=== PATIENT | female | born 1980 ===

== ENCOUNTER 2016-06-16 10:04 | Emergency (ER) | payer OTHER ==
[2016-06-16 10:09] VITALS: TEMP 98.1; O2SAT 100
--- NOTE | 2016-06-16 10:48 | ED PDOC ---
HPI: Female Pain Time Seen by Provider: 06/16/16 10:07 Chief Complaint (Nursing): Female Genitourinary Chief Complaint (Provider): Vaginal bleeding History Per: Patient Additional Complaint(s): Pt is a 36 yo female, no PMH, presents to ED at 12 weeks for evaluation of bright red vaginal bleeding, and mild lower abdominal cramping that developed this am. Pt reports bleeding was noted when wiping. no heavy clots. . Pt is followed by Clinic, last saw Dr. Pang last week. Past Medical History Reviewed: Historical Data, Nursing Documentation, Vital Signs Vital Signs: Last Vital Signs Temp 98.1 F 06/16/16 10:07 Pulse 79 06/16/16 10:07 Resp 19 06/16/16 10:07 BP 95/63 L 06/16/16 10:07 Pulse Ox 100 06/16/16 10:07 - Medical History PMH: No Chronic Diseases - Surgical History Surgical History: No Surg Hx - Family History Family History: States: No Known Family Hx - Living Arrangements Living Arrangements: With Family - Social History Current smoker - smoking cessation education provided: No Alcohol: None Drugs: Denies - Allergies Allergies/Adverse Reactions: Allergies Allergy/AdvReac Type Severity Reaction Status Date / Time No Known Allergies Allergy Verified 06/16/16 10:26 Review of Systems ROS Statement: Except As Marked, All Systems Reviewed And Found Negative Genitourinary Female: Positive for: Vaginal Bleeding Physical Exam - Reviewed Nursing Documentation Reviewed: Yes Vital Signs Reviewed: Yes - Physical Exam Appears: Positive for: Well, Non-toxic, No Acute Distress Head Exam: Positive for: ATRAUMATIC, NORMAL INSPECTION, NORMOCEPHALIC Skin: Positive for: Normal Color, Warm, DRY Eye Exam: Positive for: EOMI, Normal appearance, PERRL ENT: Positive for: Normal ENT Inspection Neck: Positive for: Normal, Painless ROM Cardiovascular/Chest: Positive for: Regular Rate, Rhythm Respiratory: Positive for: CNT, Normal Breath Sounds Gastrointestinal/Abdominal: Positive for: Normal Exam, Bowel Sounds, Soft. Negative for: Tenderness Back: Positive for: Normal Inspection Extremity: Positive for: Normal ROM Neurologic/Psych: Positive for: Alert, Oriented - Laboratory Results Result Diagrams: 06/16/16 11:10 - ECG O2 Sat by Pulse Oximetry: 100 Medical Decision Making Medical Decision Making: Pt declined any Tylenol at this time CBC and UA WNL Type: AB + US IMPRESSION: Single live intrauterine fetus with mean gestational age of 11 weeks and 1 day. The estimated date of delivery by ultrasound is 01/04/2017. There is a discrepancy with the clinical dates by approximately 2 weeks. Clinical follow- up is advised. Educated on results and demonstrated full understanding. Advised to follow up with OB, return to ED with any concerns. Disposition - Clinical Impression Clinical Impression: Threatened - Patient ED Disposition Is Patient to be Admitted: No - Disposition Referrals: Milvia Ricardo MD [Primary Care Provider] - Disposition: Routine/Home Disposition Time: 12:47 Condition: GOOD Instructions: Threatened Miscarriage (ED) Print Language: ICELANDIC - POA Present On Arrival: None
[2016-06-16 11:17] LABS: BASO % 0.3 % (0.0-2.0); EOS # 0.1 K/uL (0.0-0.7); EOS % 0.8 % (0.0-4.0); HEMATOCRIT 37.2 % (34.0-47.0); LYMPH # 1.1 K/uL (1.0-4.3); LYMPH % 15.4 % (20.0-40.0); MEAN CELL VOLUME 86.4 fl (81.0-99.0); MEAN CORPUSCULAR HEMOGLOBIN 29.8 pg (27.0-31.0); MEAN CORPUSCULAR HGB CONC 34.4 g/dL (33.0-37.0); MEAN PLATELET VOLUME 8.4 fl (7.2-11.7); MONO # 0.3 K/uL (0.0-0.8); MONO % 4.2 % (0.0-10.0); NEUT # 5.4 K/uL (1.8-7.0); NEUT % 79.3 % (50.0-75.0); RED CELL DISTRIBUTION WIDTH 13.4 % (11.5-14.5); WHITE BLOOD COUNT 6.9 K/uL (4.8-10.8)
[2016-06-16 11:50] LABS: RBC URINE 4 /hpf (0-3); URINE BACTERIA OCC (<OCC); URINE BILIRUBIN NEGATIVE (NEGATIVE); URINE BLOOD NEGATIVE (NEGATIVE); URINE COLOR AMBER (YELLOW); URINE GLUCOSE (UA) NEG (Normal); URINE KETONE TRACE mg/dL (NEGATIVE); URINE LEUKOCYTE ESTERASE NEG Leu/uL (Negative); URINE PROTEIN 30 mg/dL (NEGATIVE); URINE UROBILINOGEN 0.2-1.0 mg/dL (0.2-1.0); WBC URINE 1 /hpf (0-5)
--- NOTE | 2016-06-16 12:12 | US ---
PROCEDURE: OB Pelvic Ultrasound HISTORY: pain and bleeding COMPARISON: None available. FINDINGS: UTERUS: Single Live intrauterine gestation. CRL equivalent to 11 weeks and 6 days gestatioin Gestational sac diameter equivalent to 10 weeks and 2 days ys gestation age (Ultrasound estimated): 11 weeks and 1 day Date of delivery (Ultrasound estimated) : 01/04/2017 Heart rate: 160 bpm. Niki-gestational hemorrhage: None. Uterus measures 9.8 x 0.5 x 6.3 cm. No mass CERVIX: Long and closed. No cervical abnormality seen. The cervical length is 3.8 cm. RIGHT OVARY: Not visualized. LEFT OVARY: Measures 2.5 x 2.5 x 1.4 cm. No mass. Normal flow. FREE FLUID: None. OTHER FINDINGS: None. IMPRESSION: Single live intrauterine fetus with mean gestational age of 11 weeks and 1 day. The estimated date of delivery by ultrasound is 01/04/2017. There is a discrepancy with the clinical dates by approximately 2 weeks. Clinical follow-up is advised.
[2016-06-16 13:08] VITALS: BP 112/65; PULSE 66; RESP 16
== END 2016-06-16 13:07 | disposition home or self-care (01) ==
LOC: H.ER 10:04
DX: O20.0 Threatened abortion (principal); Z3A.11 11 weeks gestation of pregnancy

== ENCOUNTER 2016-07-30 13:35 | Emergency (ER) | payer SELFPAY ==
[2016-07-30 14:05] VITALS: BP 106/79; PULSE 77; RESP 19; TEMP 97.8; O2SAT 100
--- NOTE | 2016-07-30 14:54 | ED PDOC ---
HPI: Female Pain Time Seen by Provider: 07/30/16 13:42 Chief Complaint (Nursing): Female Genitourinary Chief Complaint (Provider): Spotting, 18 weeks History Per: Patient History/Exam Limitations: no limitations Onset/Duration Of Symptoms: Days Current Symptoms Are (Timing): Still Present Additional Complaint(s): Pt states she was seen in ER 1 month ago for same. Pt states she noticed a small amount of blood on toilet paper after using the restroom. PT states she believes it is from her vaginal. Pt blood (+). Pt denies pain. Past Medical History Reviewed: Historical Data, Nursing Documentation, Vital Signs Vital Signs: Last Vital Signs Temp 97.8 F 07/30/16 14:03 Pulse 77 07/30/16 14:03 Resp 19 07/30/16 14:03 BP 106/79 07/30/16 14:03 Pulse Ox 100 07/30/16 14:03 - Medical History PMH: No Chronic Diseases - Surgical History Surgical History: No Surg Hx - Family History Family History: States: Unknown Family Hx - Living Arrangements Living Arrangements: With Family - Social History Current smoker - smoking cessation education provided: No Alcohol: None Drugs: Denies - Allergies Allergies/Adverse Reactions: Allergies Allergy/AdvReac Type Severity Reaction Status Date / Time No Known Allergies Allergy Verified 06/16/16 10:26 Review of Systems ROS Statement: Except As Marked, All Systems Reviewed And Found Negative Genitourinary Female: Positive for: Vaginal Bleeding (Spotting, light pink) Physical Exam - Reviewed Nursing Documentation Reviewed: Yes Vital Signs Reviewed: Yes - Physical Exam Appears: Positive for: Well, Non-toxic, No Acute Distress Head Exam: Positive for: ATRAUMATIC, NORMAL INSPECTION, NORMOCEPHALIC Skin: Positive for: Normal Color, Warm, DRY Eye Exam: Positive for: Normal appearance ENT: Positive for: Normal ENT Inspection Neck: Positive for: Normal, Painless ROM Cardiovascular/Chest: Positive for: Regular Rate, Rhythm Respiratory: Positive for: Normal Breath Sounds. Negative for: Accessory Muscle Use, Respiratory Distress Gastrointestinal/Abdominal: Positive for: Normal Exam, Bowel Sounds, Soft. Negative for: Tenderness Back: Positive for: Normal Inspection Extremity: Positive for: Normal ROM Neurologic/Psych: Positive for: Alert, Oriented - ECG O2 Sat by Pulse Oximetry: 100 Pulse Ox Interpretation: Normal Medical Decision Making Medical Decision Making: Urine US - Disposition - Clinical Impression Clinical Impression: Vaginal bleeding in - [facility]position [facility] Disposition: Routine/Home Disposition Time: 17:14 Condition: GOOD Additional Instructions: Please follow-up with OB. Instructions: Threatened Miscarriage (ED) Print Language: MALAY
--- NOTE | 2016-07-30 17:04 | US ---
Indication: Spotting this morning, resolved Comparison: Ob transvaginal ultrasound performed 06/16/16 Technique: Real-time ultrasound was performed through the pelvis. Findings: There is a single living fetus in breech presentation. Amniotic fluid volume is within normal limits. Anterior placenta. The placenta is not previa. Bilateral ovaries are not visualized. There are no adnexal masses or cysts evident. Cervix length measures approximately 4.3 cm. Trace fluid in the cervix. No significant pelvic free fluid. Measurements and calculations: Fetus has a composite sonographic age of 18 weeks, 3 days plus/-1 week. This calculation is based on the biparietal diameter, head circumference, abdominal circumference, and femur length. Estimated heart rate 133 beats per min. Impression: Single living fetus with a composite sonographic age of 18 weeks 3 days. Estimated heart rate 133 beats per min. Trace fluid in the cervix.
== END 2016-07-30 17:53 | disposition home or self-care (01) ==
LOC: H.ER 13:35
DX: O46.90 Antepartum hemorrhage, unspecified, unspecified trimester (principal); Z3A.18 18 weeks gestation of pregnancy; O20.0 Threatened abortion

== ENCOUNTER 2016-12-21 18:06 | Inpatient (IN) | payer MEDICAID, SELFPAY ==
[2016-12-21 19:21] VITALS: BMI 31.4
[2016-12-21] MEDS ORDERED: Lactated Ringer's 1,000 ML IV SCH ×3 (19:30→23:38)
[2016-12-21 19:55] LABS: BASO # 0.1 K/uL (0.0-0.2); BASO % 1.1 % (0.0-2.0); EOS % 0.5 % (0.0-4.0); HEMATOCRIT 36.5 % (34.0-47.0); LYMPH # 1.6 K/uL (1.0-4.3); LYMPH % 17.8 % (20.0-40.0); MEAN CORPUSCULAR HEMOGLOBIN 29.7 pg (27.0-31.0); MEAN CORPUSCULAR HGB CONC 33.7 g/dL (33.0-37.0); MEAN PLATELET VOLUME 8.1 fl (7.2-11.7); MONO # 0.5 K/uL (0.0-0.8); MONO % 5.5 % (0.0-10.0); NEUT # 6.7 K/uL (1.8-7.0); NEUT % 75.1 % (50.0-75.0); NRBC % 0.1 % (0.0-0.0); RED CELL DISTRIBUTION WIDTH 14.4 % (11.5-14.5)
[2016-12-21] MEDS ORDERED: ceFAZolin 2 GM in Sodium Chloride 0.9% 100 ML IVPB ONE (20:00)
[2016-12-21] MEDS ORDERED: Morphine 1 mg/ml preservative-free Inj(Duramorph) ONE (20:01)
[2016-12-21] MEDS ORDERED: ePHEDrine 50 mg/ml Inj ONE (20:21)
[2016-12-21] MEDS ORDERED: Oxycodone/Acetaminophen 5/325 mg Tab PO PRN ×3 (21:50→23:38)
[2016-12-21] MEDS ORDERED: Naloxone 0.4 mg/ml Inj (Adult) IVP PRN ×2 (21:57→23:38)
[2016-12-21] MEDS ORDERED: DiphenhydrAMINE 50 mg/ml Inj IVP PRN ×2 (21:57→23:38)
--- NOTE | 2016-12-21 22:08 | OBHP ---
Datetime: 12/21/2016 19:15 IP Adm Impression: Term, intrauterine ; Active labor IP Admit Plan: Admit to unit; Initiate Section protocol Pelvic Type - PN: Adequate Extremities - PN: Normal Abdomen - PN: Normal Back - PN: Normal Lungs - PN: Normal Heart - PN: Normal Neurologic - PN: Normal HEENT - PN: Normal General - PN: Normal Presentation-Admit: Breech Membranes, Provider: Intact Comments, ACOG Physical Exam: bedside us shows breech presentation IP Hx Assessment: The History has been Reviewed and is Current Vital Signs Provider: Reviewed; Within Normal Limits IP Indication for Induction: Not Applicable IP Chief Complaint: Maternal discomfort NICHD Variability Prov Fetus A: Moderate 6-25bpm (Annotations: Data stored by CPN on behalf of user) NICHD Accel Fetus A IP Provider: [id number] NICHD Decel Fetus A IP Provider: None Genitourinary Exam: Normal Datetime: 12/21/2016 18:55 IP Chief Complaint Other: Breech presentation Admit Comment, IP Provider: 36 y/o at 38w1d, previous C -section , with breech presentation in current who presents c/o right and lower abdominal pain since today at noon. Denies vaginal bleeding, vaginal discharge or LOF. Reports decreased movements since this afternoon. PMHx: Seasonal allergies OBHx: , previous SHx:C-sec, left breast cyst removal Allergies: NKDA Meds:PNV labs: RPR/HIV: neg/neg, Rubella: immune, GC/Chl: neg/neg, HBsAg: neg, GBS: rare gram pos cocci noted in vaginal culture. O:as above Vaginal exam showd 2 cm/50 % A: 36 y/o at 38w1d, previous C -section , with breech presentation in early labor P:admit to hospital NPO start protocol Ancef 2 gm IV once case discussed and examined with dr. fEfie Ricardo PGY2 OB attending addendum: Patient seen and examined by me with Dr. Guzman. Agree with above assessment and plan. Bedside u ltrasound shows breech presentation. Thyroid - PN: Normal FHR - Baseline A Provider: 140 Contraction Comments Provider: sporadic FHR Category Provider Fetus A: Category I Dilatation, Provider: 2 Effacement, Provider: 50 DTRs - PN: Normal
--- NOTE | 2016-12-21 22:27 | OBDS ---
DELIVERY PERSONNEL Delivery Doctor: Sangeetha Jennings MD (Annotations: Data stored by [email or web address] on behalf of user) Incident Engineer: Darlin Greene RN Anesthesiologist: Nilam Witt MD Resident: Milvia Guzman MATERNAL INFORMATION Delivery Anesthesia: Spinal Medications in Delivery: Pitocin Estimated Blood Loss (ml): 700 Placenta Cultured: No Maternal Complications: None LABOR SUMMARY [facility]: 01/03/2017 00:00 No. Babies in Womb: 1 Attempted: No Labor Anesthesia: Spinal LABOR INFORMATION Reason for Induction: Not Applicable Oxytocin: N/A Group B Beta Strep: Negative Antibiotics # of Doses: 1 Antibiotics Time of Last Dose: 1950 Steroids Given: None Reason Steroids Not Administered: Not Applicable MEMBRANES Membranes Rupture Method: Artificial Rupture of Membranes: 12/21/2016 20:22 Length of Rupture (hrs): 0.02 Amniotic Fluid Color: Clear Amniotic Fluid Amount: Small Amniotic Fluid Odor: Normal STAGES OF LABOR Stage 3 hrs: 0 Stage 3 min: 1 CSECTION DELIVERY Primary Indication: Repeat Secondary Indication: Complete Breech CSection Urgency: Non Elective CSection Incidence: Repeat Labor: Labor Elective: Nonelective CSection Incision: Lower Uterine Transverse BABY A INFORMATION Delivery Date/Time: 12/21/2016 20:23 Method of Delivery: Born in Route : No : N/A Forceps: N/A Vacuum Extraction: N/A Shoulder Dystocia : No SHOULDER DYSTOCIA BABY A Infant Delivery Date/Time: 12/21/2016 20:23 PRESENTATION/POSITION BABY A Presentation: Breech PLACENTA INFORMATION BABY A Placenta Delivery Time : 12/21/2016 20:24 Placenta Method of Delivery: Expressed Placenta Status: Delivered SCORES BABY A Heart Rate 1 min: >100 bpm Resp Effort 1 min: Good Cry Reflex Irritability 1 min: Cough or Sneeze or Pulls Away Muscle Tone 1 min: Active Motion Color 1 min: Body Oak[place], Extremities Blue Resuscitation Effort 1 min: Tactile Stimulation SCORE 1 MIN: 9 Heart Rate 5 min: >100 bpm Resp Effort 5 min: Good Cry Reflex Irritability 5 min: Cough or Sneeze or Pulls Away Muscle Tone 5 min: Active Motion Color 5 min: Body Oak[place], Extremities Blue Resuscitation Effort 5 min: N/A SCORE 5 MIN: 9 INFORMATION BABY A Gestational Age at Delivery: 38.1 Gestational Status: Term Outcome : Liveborn Infant Condition : Stable Sex: Female IDENTIFICATION/MEDS BABY A ID Band Number: [id number] ID Band Location: Left Leg; Left Arm WEIGHT/LENGTH BABY A Infant Birthweight (gms): 2995 Weight (lb): 6 Infant Weight (oz): 10 CORD INFORMATION BABY A No. Cord Vessels: 3 Nuchal Cord : N/A Nuchal Cord Other: n/a True Knot: n/a Infant Cord pH Baby Arterial: n/a Infant Cord pH Baby Venous: n/a Cord Blood Taken: Yes Banking/Donate Info: n/a Suction: Mouth; Nose ASSESSMENT BABY A Complications: None Physical Findings at Delivery: Within Normal Limits Respirations: Appears Normal Christmas Tree Grader/ALS Called : No Infant Care By: Dr Wilburn/Jere Transferred To: Nursery
--- NOTE | 2016-12-22 02:57 | OP ---
PROCEDURE DATE: 12/21/2016 PREOPERATIVE DIAGNOSES: 1. A 38.1 week gestation in labor. 2. Breech presentation. 3. History of prior delivery. POSTOPERATIVE DIAGNOSES: 1. A 38.1 week gestation in labor. 2. Breech presentation. 3. History of prior delivery. PROCEDURE: Repeat low transverse section. SURGEON: Shaila Chou MD MANAGER LAW: Elmo Rudd MD SECOND BLISS PRESS OPERATOR: Milvia Guzman, PGY-2 ANESTHESIA: Spinal. ANESTHESIOLOGIST: Dr. Witt. ESTIMATED BLOOD LOSS: 700 mL. PATHOLOGY SPECIMENS: None. DRAINS: Gonzalez catheter to drainage. FINDINGS: Showed a viable female infant with the weight of 2995 g in complete breech presentation with clear amniotic fluid. Findings also showed adhesions of the peritoneum and omentum to the anterior uterine wall. DESTINATION: The patient to recovery room in satisfactory condition, to Nursery. COMPLICATIONS: None. INDICATION: The patient is a 36-year-old female, 3, para1, who presented at 38.1 weeks with complaint of contractions. She was noted to be 2 cm dilated and in complete breech presentation. A informed consent was obtained for a repeat section; and risks, benefits and indications discussed with the patient versus no treatment; she desires section. DESCRIPTION OF PROCEDURE: The patient was taken to the operating room, where she underwent her spinal anesthesia by Dr. Witt. She was then placed in the dorsal supine position with a leftward tilt and prepped and draped in the routine sterile fashion. A Pfannenstiel skin incision was made at the site of the old scar. The incision was then carried down to the underlying rectus fascia, which was incised in the midline and extended bilaterally. The inferior rectus fascial edges were grasped with Gina's, and the underlying rectus muscle was dissected off. The same procedure was performed along the superior rectus fascial edge. The rectus muscle was grasped on either side and elevated with Gina's and incised in the midline until the abdominal cavity was entered. Adhesions of the peritoneum to the omentum and the anterior uterine wall were noted. Sharp dissection was performed to place the omentum laterally. A bladder blade was placed, and a lower uterine transverse incision was made with the knife. The uterine cavity was then entered bluntly. The uterine incision was digitally extended laterally and then caudad and cephalad manner. The was noted to be in complete breech presentation. My index fingers were placed into the fetus' left and right groin and the thumbs along the sacrum of the . Downward traction was applied until the buttocks were delivered. This was followed by delivery of the left lower extremity and right lower extremity, followed by delivery of the right upper extremity and the left upper extremity and delivery of the head. The cord was clamped and cut, and mouth and nares were suctioned. The baby was handed off to the awaiting utility pipe layer. Cord blood was collected. The placenta was delivered spontaneously and intact. The uterus was exteriorized and cleared of all clots and debris. The uterine incision was re-approximated with 0 Vicryl in a running locked fashion, followed by an imbricated stitch with 0 Monocryl. The abdomen was irrigated and cleared of all clots and debris. The uterine incision was reinspected, good hemostasis was confirmed. The peritoneum was reapproximated with 2-0 Vicryl in a running fashion. The fascia was reapproximated with 0 Vicryl in a running fashion beginning in the right lateral corner going to the midline and another stitch beginning in the left lateral corner going to the midline, each sequentially tied. The wound was irrigated, good hemostasis was confirmed. The subcutaneous layer of 2-0 simple interrupted was placed. A subcuticular stitch with 3-0 Vicryl was performed. All sponge, lap and needle count were correct. The patient returned to the recovery room in satisfactory condition. Of note, Dr. Rudd was my first assembler surgical garment. He assisted with surgical entry, surgical exposure, surgical hemostasis, delivery of the fetus, and surgical closure. His assistance was essential. Shaila Chou MD MARIA EUGENIA
[2016-12-22 06:10] LABS: HEMATOCRIT 32.5 % (34.0-47.0); MEAN CELL VOLUME 88.3 fl (81.0-99.0); MEAN CORPUSCULAR HEMOGLOBIN 29.4 pg (27.0-31.0); MEAN CORPUSCULAR HGB CONC 33.3 g/dL (33.0-37.0); RED CELL DISTRIBUTION WIDTH 14.2 % (11.5-14.5); WHITE BLOOD COUNT 11.3 K/uL (4.8-10.8)
[2016-12-22] MEDS ORDERED: Influenza Vaccine 18yr & older 0.5 ML/45 MCG SYR IM ONE (09:00)
[2016-12-22] MEDS ORDERED: Multivitamin With Minerals Tab PO SCH (09:00)
[2016-12-22] MEDS: Oxycodone/Acetaminophen 5/325 mg Tab PO PRN ×2 (09:17→19:19)
[2016-12-22] MEDS: Multivitamin With Minerals Tab PO SCH (09:21)
--- NOTE | 2016-12-22 13:29 | OBPPN ---
Datetime: 12/22/2016 08:04 PP Pain Prov: Within normal limits PP Nausea Prov: Denies PP Flatus Prov: No PP BM Prov: No PP Breasts Prov: Not Done PP Heart Prov: Normal PP Lungs Prov: Normal PP Abdomen/Uterus Prov: Normal PP Lochia Prov: Normal PP Extremities Prov: Normal PP C/S Incision Prov: Normal PP Progress Prov: Normal PP Impression Prov: Normal progression PP Plan Prov: Continue present management PP Progress Note Prov: 36 yo now , s/p emergent on 12/21/16 due to onset of labor a nd breech presentation, doing well on POD 1. She reports that she has some moderate pain, but that it is well controlled with pain medication. Will start regular diet today, has been tolerating ice chip s. Gonzalez in place; to be removed today. Has not passed gas or had BM yet. Has not gotten out of bed yet. Feeding baby via breast and bottle. Denies fevers, chills, shortness of breath, chest pain, nausea, vomiting, leg/calf pain. PE: Gen: AAOx3, resting comfortably in bed CV: S1,S2, RRR Resp: clear to auscultation bilaterally, normal respiratory effort Abd: +BS. Dressing on incision clean and dry. Extremities: no edema, negative Carlos's, calves non-tender Assessment: 36 yo , s/p , POD 1. Doing well. Plan: Encourage and ambulation. Pain control. [id number] The patient was ssen with the resident I agree with the note
[2016-12-23] MEDS: Oxycodone/Acetaminophen 5/325 mg Tab PO PRN ×2 (03:12→21:59)
[2016-12-23] MEDS: Multivitamin With Minerals Tab PO SCH (09:29)
[2016-12-24] MEDS: Oxycodone/Acetaminophen 5/325 mg Tab PO PRN (06:17)
[2016-12-24] MEDS: Multivitamin With Minerals Tab PO SCH (08:44)
--- NOTE | 2016-12-24 09:33 | OBPPN ---
Datetime: 12/23/2016 07:26 PP Pain Prov: Within normal limits PP Nausea Prov: Denies PP Flatus Prov: Yes PP BM Prov: No PP Breasts Prov: Not Done PP Heart Prov: Normal PP Lungs Prov: Normal PP Abdomen/Uterus Prov: Normal PP Lochia Prov: Normal PP Extremities Prov: Normal PP C/S Incision Prov: Normal PP Progress Prov: Normal PP Impression Prov: Normal progression PP Plan Prov: Continue present management PP Progress Note Prov: 36 yo now , s/p emergent on 12/21/16, seen and examined on P OD2. She reports that she has some moderate pain, but that it is well controlled with pain medication . Dressing was removed yesterday evening; no bleeding noted at that time, no complaints of bleeding a s per patient. Pt has been OOB and ambulating to the bathroom without dizziness. Voiding freely. Loch ia less than menses in volume. Tolerating regular diet. Has passed gas. Feeding baby via breast and bottle. Denies fevers, chills, shortness of breath, chest pain, nausea, vomiting, leg/calf pain. PE: Gen: AAOx3, resting comfortably in bed CV: S1,S2, RRR Resp: clear to auscultation bilaterally, normal respiratory effort Abd: +BS. Incision clean and dry. Extremities: no edema, negative Carlos's, calves non-tender Assessment: 36 yo , s/p , POD 2. Doing well. Plan: Encourage and ambulation. Pain control. -[id number] Patient doing well ambulating tolerating diet encourage ambulation and analgesia as needed and ant icipate discharge in a.m. the patient was seen with the resident I agree with the note Vital Signs Provider PP: Reviewed; Within Normal Limits
[2016-12-24 18:37] VITALS: BP 92/60; PULSE 83; RESP 20; TEMP 98.1; O2SAT 98
== END 2016-12-24 12:45 | disposition home or self-care (01) | DRG 766 ==
LOC: H.EROB2 18:06 → H.EROB 19:25 → H.L&D 21:23 → H.OB/GYN 12-22
PROVIDERS: ADMIT Obstetrics & Gynecology; ATTEND Obstetrics & Gynecology
PROC: 10D00Z1 Extraction of Products of Conception, Low, Open Approach (ICD-10-PCS; principal; 2016-12-21)
PROC: 4A1HXCZ Monitoring of Products of Conception, Cardiac Rate, External Approach (ICD-10-PCS; 2016-12-21)
DX: O34.211 Maternal care for low transverse scar from previous cesarean delivery (principal); K66.0 Peritoneal adhesions (postprocedural) (postinfection); Z37.0 Single live birth; O32.1XX0 Maternal care for breech presentation, not applicable or unspecified; N85.8 Other specified noninflammatory disorders of uterus; O36.8130 Decreased fetal movements, third trimester, not applicable or unspecified; Z3A.38 38 weeks gestation of pregnancy